=== PATIENT | female | born 1965 | race Native Hawaiian/Other Pacific Islander ===

== ENCOUNTER 2023-03-08 10:34 | Emergency (ER) | payer OTHER ==
[~2023-03-08] VITALS: Ht 157.5 cm; Wt 70.3 kg
[2023-03-08 10:35] VITALS: BP 159/75; TEMP 99
== END 2023-03-08 13:55 | disposition home or self-care (01) ==
LOC: ED 10:34
DX: S40.022A Contusion of left upper arm, initial encounter (principal); S09.93XA Unspecified injury of face, initial encounter; W19.XXXA Unspecified fall, initial encounter; Y99.0 Civilian activity done for income or pay
CPT/HCPCS: 96372; 99283; J1885